=== PATIENT | female | born 2000 | race Two or more races ===

== ENCOUNTER 2020-03-25 10:34 | Inpatient (IN) | payer MEDICAID, OTHER ==
[~2020-03-25] VITALS: Ht 160 cm; Wt 63.7 kg
[2020-03-25] MEDS ORDERED: SODIUM CHLORIDE 0.9% 500 ML IVB ONE (10:51)
[2020-03-25] MEDS ORDERED: SODIUM CHLORIDE 0.9% 1,000 ML IV ONE (10:51)
[2020-03-25] MEDS ORDERED: PROMETHAZINE HCL 25 MG/ML 1ML IV PRN (11:00)
[2020-03-25] MEDS ORDERED: KETOROLAC TROMETH 30 MG/ML 1ML VIAL IV ONE (11:00)
[2020-03-25 11:12] LABS: Basophils # (auto) 0 10 ^3/uL (0-0.2); Basophils % (auto) 0.2 % (0.0-2.0); Eosinophils # (auto) 0 10 ^3/uL (0-0.8); Eosinophils % (auto) 0.3 % (0.0-7.0); Hematocrit 41.2 % (36.0-46.0); Hemoglobin 13.3 g/dL (12.2-16.2); Lymphocytes # (auto) 1.1 10 ^3/uL (0.4-5.4); Lymphocytes % (auto) 9.2 % (10.0-50.0); Mean Corpuscular Hgb Conc. 32.3 g/dL (32.0-36.0); Mean Corpuscular Volume 93.1 fL (80.0-100.0); Monocytes # (auto) 0.5 10 ^3/uL (0-1.3); Monocytes % (auto) 4.4 % (0.0-12.0); Neutrophils # (auto) 10.3 10 ^3/uL (1.6-8.6); Neutrophils % (auto) 85.9 % (37.0-80.0); Platelet Count (auto) 193 10^3/uL (140-450); Red Blood Cells 4.43 10^6/uL (4.0-5.20); Red Cell Distribution Width 13.3 % (11.8-14.3)
[2020-03-25 11:27] LABS: Magnesium 2.1 mg/dL (1.6-2.6)
[2020-03-25 11:29] LABS: Albumin 3.7 g/dL (3.4-5.0); Calcium 8.4 mg/dL (8.5-10.1); Potassium 3.2 mmol/L (3.5-5.1)
[2020-03-25 11:31] LABS: Bilirubin, Total 0.6 mg/dL (0.2-1.0); Total Protein 6.9 g/dL (6.4-8.2)
[2020-03-25 11:49] LABS: Urine Bacteria NONE SEEN /hpf (None Seen); Urine Blood 3+ /uL (Negative); Urine Mucus FEW (None Seen); Urine Specific Gravity 1.023 (1.001-1.035); Urine WBC 15 /hpf (0 - 5)
[2020-03-25] MEDS ORDERED: cefTRIAXone 1GM/50ML D5W 50 ML IV ONE (12:45)
[2020-03-25] MEDS ORDERED: POTASSIUM CHL 20MEQ/100ML 100 ML IV ONE (12:45)
[2020-03-25] MEDS: POVIDONE IODINE 10 % TOPICAL OINT 30GM TOP ONE ×2 (12:57→14:11)
[2020-03-25] MEDS ORDERED: MORPHINE SULF INJ 2 MG/ML SYRINGE 1ML IV PRN (13:00)
[2020-03-25] MEDS ORDERED: ACETAMINOPHEN 500 MG TAB PO PRN (13:00)
[2020-03-25] MEDS ORDERED: ONDANSETRON HCL 4 MG/2 ML VIAL IV PRN ×3 (13:00→14:45)
[2020-03-25] MEDS ORDERED: NITROGLYCERIN 0.4 MG SL TAB SL PRN (13:00)
[2020-03-25] MEDS ORDERED: HYDROcodone-ACET 5/325MG TAB PO PRN (13:00)
[2020-03-25] MEDS ORDERED: ROCURONIUM 10MG/ML 10ML VIAL IV ONE (13:25)
[2020-03-25] MEDS ORDERED: SUCCINYLCHOLINE CHLORIDE 20 MG/ML 10ML VIAL IV ONE (13:29)
[2020-03-25] MEDS ORDERED: LIDOCAINE 1% (LOCAL ANESTH.) PF 5ml SDV ONE (13:29)
[2020-03-25 13:51] LABS: INR 1.07 (0.9-1.15); Partial Thromboplastin Time 28.1 sec (23.64-32.05)
[2020-03-25] MEDS ORDERED: metroNIDAZOLE 500MG/100ML 100 ML IV SCH (14:00)
[2020-03-25] MEDS ORDERED: HYDROmorphone HCL 2 MG/ML VL IV ONE (14:15)
[2020-03-25] MEDS: metroNIDAZOLE 500MG/100ML 100 ML IV SCH ×2 (14:33→22:37)
[2020-03-25] MEDS ORDERED: HYDROmorphone HCL 2 MG/ML VL IV PRN ×2 (14:45)
[2020-03-25] MEDS ORDERED: NALOXONE HCL 0.4 MG/ML VIAL IV PRN (14:45)
[2020-03-25] MEDS: SODIUM CHLORIDE 0.9% 1,000 ML IV SCH ×2 (15:31→23:00)
--- NOTE | 2020-03-25 16:06 | NUR ---
CAME ON BED FROM OR DIRECT ADMIT, ALERT AND ORIENTED X4, NOT IN DISTRESS, CLEAR LS IN BILATERAL LUNG LOBES, RR=16 XTJ=021% IN RA, COUGHING AND DEEP BREATHING ENCOURAGED, DEMONSTRATED AND VERBALIZED WELL, DENIED CHEST PAIN OR SOB, ABDOMEN FLAT AND SOFT WITH HYPOACTIVE BS, SURGICAL INCISIONS X3 DRY AND INTACT COVERED WITH TEGA DERM, TOLERATING ABDOMINAL BINDER WELL, CHE INTACT WARM TO TOUCH, RADIAL AND PEDAL PULSES PALPABLE, PAIN L=4/10 REPORTED, VS T=98.3 RR=16 KCM=790% IN RA, P=90 NP=860/66, RESTING ON BED, HEAD OF BED ELEVATED, BED ON LOW POSITION, CALL LIGHT ON REACH, WILL CONTINUE MONITORING.
[2020-03-25 16:58] VITALS: BP 113/64
--- NOTE | 2020-03-25 18:20 | NUR ---
OUT OF BED TO BR AND BACK TO THE BED, TOLERATED WELL, WILL CONTINUE MONITORING.
--- NOTE | 2020-03-25 19:25 | NUR ---
OPENING NOTE- NOC SHIFT PATIENT IS RESTING IN BED TALKING ON HER PERSONAL CELL PHONE. BED IS LOCKED AT LOWEST POSITION BED RAILS UP X2, BEDSIDE TABLE WITHIN REACH, CALL LIGHT WITHIN REACH. DISCUSSED POC WITH PATIENT AND INSTRUCTED PATIENT TO CALL; PATIENT VERBALIZED UNDERSTANDING.
--- NOTE | 2020-03-25 19:45 | NUR ---
RESTING ON BED, NOT IN DISTRESS, REPORT WAS GIVEN TO THE SHEETMETAL PATTERNMAKER RN.
[2020-03-25] MEDS: MORPHINE SULF INJ 2 MG/ML SYRINGE 1ML IV PRN (20:07)
[2020-03-25 20:25] VITALS: BP 105/54
[2020-03-25 22:00] VITALS: BP 105/54
--- NOTE | 2020-03-25 22:25 | NUR ---
PATIENT UP TO WALK. PATIENT AMBULATES INDEPENDENTLY. STEADY GAIT NOTED. TOLERATES WELL.
[2020-03-26] MEDS: MORPHINE SULF INJ 2 MG/ML SYRINGE 1ML IV PRN (01:14)
[2020-03-26 05:00] VITALS: BP 109/63
[2020-03-26] MEDS: metroNIDAZOLE 500MG/100ML 100 ML IV SCH ×3 (06:27→21:42)
[2020-03-26 08:00] VITALS: BP 102/74
--- NOTE | 2020-03-26 08:00 | NUR ---
Opening Shift Note Assumed care of patient, who is alert and oriented x4. Respirations are even and unlabored. No S/S of distress/SOB or pain. S/p appendectomy. 3 abdominal incisions noted; dressings C/D/I. Abdominal binder is in place. Bed is low, locked with 2x side rails up. Call light is within reach. Instructed on POC and to call for assist PRN, will continue to monitor for changes Q1hr and PRN.
[2020-03-26] MEDS: SODIUM CHLORIDE 0.9% 1,000 ML IV SCH ×2 (09:00→14:17)
[2020-03-26] MEDS: PANTOPRAZOLE 40 MG/10 ML VIAL INJ IV SCH (09:01)
[2020-03-26] MEDS: cefTRIAXone 1GM/50ML D5W 50 ML IV SCH (09:02)
--- NOTE | 2020-03-26 11:35 | NUR ---
Patient ambulating Patient ambulating in hallway with steady gait.
[2020-03-26 12:00] VITALS: BP 105/58
--- NOTE | 2020-03-26 13:35 | NUR ---
Spoke with Dr. Macias Patient reported having a BM today. New orders received to advance diet. (SEE ORDERS). Will continue to monitor. Addendum: 03/26/20 at 1829 by Ivonne Ace RN RN Correction: patient stated that she did not have a BM today but that she has been passing gas. Will relay to oncoming nurse.
[2020-03-26 14:19] LABS: Basophils # (auto) 0 10 ^3/uL (0-0.2); Basophils % (auto) 0.5 % (0.0-2.0); Eosinophils # (auto) 0 10 ^3/uL (0-0.8); Eosinophils % (auto) 0.6 % (0.0-7.0); Hematocrit 37.9 % (36.0-46.0); Hemoglobin 12.2 g/dL (12.2-16.2); Lymphocytes # (auto) 1.3 10 ^3/uL (0.4-5.4); Lymphocytes % (auto) 20.3 % (10.0-50.0); Mean Corpuscular Hemoglobin 30.1 pg (28.0-32.0); Mean Corpuscular Hgb Conc. 32.3 g/dL (32.0-36.0); Mean Corpuscular Volume 93.1 fL (80.0-100.0); Monocytes # (auto) 0.5 10 ^3/uL (0-1.3); Monocytes % (auto) 7.8 % (0.0-12.0); Neutrophils # (auto) 4.4 10 ^3/uL (1.6-8.6); Neutrophils % (auto) 70.8 % (37.0-80.0); Nucleated Red Blood Cells % 0.1 %; Platelet Count (auto) 173 10^3/uL (140-450); Red Blood Cells 4.06 10^6/uL (4.0-5.20); Red Cell Distribution Width 13.2 % (11.8-14.3); White Blood Cell 6.2 10^3/uL (4.4-10.8)
[2020-03-26 16:45] VITALS: BP 109/62
--- NOTE | 2020-03-26 18:42 | NUR ---
Dinner No abdominal pain, N/V reported after consumption of dinner. Patient tolerated well. Patient stated that she is passing more gas now since she had dinner. Will continue to monitor.
--- NOTE | 2020-03-26 19:20 | NUR ---
OPENING NOTE- NOC SHIFT PATIENT IS ALERT AND ORIENTED LAYING IN BED WATCHING TELEVISION. BEDSIDE TABLE WITHIN REACH, CALL LIGHT WITHIN REACH, INCENTIVE SPIROMETER WITHIN REACH. DISCUSSED POC WITH PATIENT AND THE IMPORTANCE OF USE OF INCENTIVE SPIROMETER AND PROPER USE; PATIENT DEMONSTRATED CORRECT USE OF INCENTIVE SPIROMETER. WILL CONTINUE TO MONITOR Q1H AND PRN.
--- NOTE | 2020-03-26 19:35 | NUR ---
PATIENT AMBULATING IN HALLWAY INDEPENDENTLY AND TOLERATING WELL. PATIENT DENIES BOWEL MOVEMENT AND DENIES PASSING GAS AFTER SURGERY. PATIENT REPORTS TOLERATING MEALS WELL.
[2020-03-26 20:10] VITALS: BP 104/66
[2020-03-26 21:45] VITALS: BP 109/66
[2020-03-27] MEDS: SODIUM CHLORIDE 0.9% 1,000 ML IV SCH (04:28)
[2020-03-27 05:42] VITALS: BP 106/54
[2020-03-27 05:48] LABS: BUN/Creatinine Ratio 18.6; Calcium 7.9 mg/dL (8.5-10.1); Magnesium 2.2 mg/dL (1.6-2.6); Potassium 3.4 mmol/L (3.5-5.1)
[2020-03-27] MEDS: metroNIDAZOLE 500MG/100ML 100 ML IV SCH ×2 (05:53→13:34)
--- NOTE | 2020-03-27 07:02 | NUR ---
CLOSING NOTE- NOC SHIFT PATIENT IS SITTING UP IN BED. PATIENT REPORTS PASSING GAS BUT NO BOWEL MOVEMENT AFTER SURGERY. PATIENT STATES THAT SHE NORMALLY DOES NOT HAVE A BOWEL MOVEMENT EVERY DAY. PATIENT TOLERATES INDEPENDENT AMBULATION WELL. STEADY GAIT NOTED. NO S/SX OF DISTRESS, SOB OR PAIN. WILL ENDORSE PATIENT CARE TO DAY SHIFT RN.
--- NOTE | 2020-03-27 07:30 | NUR ---
Opening Shift Note Assumed care of patient, who is alert and oriented x4. Respirations are even and unlabored. No S/S of distress/SOB or pain. S/p appendectomy. 3 abdominal incisions noted; dressings C/D/I. Abdominal binder is in place. Patient ambulates independently with steady gait. Bed is low, locked with 2x side rails up. Call light is within reach. Instructed on POC and to call for assist PRN, will continue to monitor for changes Q1hr and PRN.
[2020-03-27 08:00] VITALS: BP 101/55
[2020-03-27] MEDS: cefTRIAXone 1GM/50ML D5W 50 ML IV SCH (08:36)
[2020-03-27] MEDS: PANTOPRAZOLE 40 MG/10 ML VIAL INJ IV SCH (08:36)
[2020-03-27 12:00] VITALS: BP 110/62
[2020-03-27] MEDS ORDERED: LEVO500T21 PO (14:00)
[2020-03-27] MEDS ORDERED: POTASSIUM CHL 20 Meq TABLET PO ONE (14:00)
[2020-03-27] MEDS ORDERED: DOCU-94 PO (14:00)
[2020-03-27] MEDS ORDERED: METR500T PO (14:00)
[2020-03-27 14:56] VITALS: BP 110/62
--- NOTE | 2020-03-27 16:03 | NUR ---
Discharge instructions given as ordered. Encourage to follow up with PMD as instructed. Emphasized the importance of calling Dr. Hernandez's office to schedule a 1 week follow up appointment. Patient verbalized understanding. All questions and concerns addressed. Patient verbalized understanding. IV removed with catheter intact, pressure dressing applied. Patient taken to vehicle via wheelchair with all personal belongings, accompanied by staff. No distress noted at time of departure.
== END 2020-03-27 16:00 | disposition home or self-care (01) | DRG 233 ==
LOC: ER 10:34 → OVERFLOW 10:35 → WEST WING 15:57
PROVIDERS: ADMIT Nurse Practitioner Acute Care; ATTEND Internal Medicine
PROC: 0DTJ4ZZ Resection of Appendix, Percutaneous Endoscopic Approach (ICD-10-PCS; principal; 2020-03-25 13:30)
DX: K35.30 Acute appendicitis with localized peritonitis, without perforation or gangrene (principal); R65.10 Systemic inflammatory response syndrome (SIRS) of non-infectious origin without acute organ dysfunction; E87.6 Hypokalemia; D72.829 Elevated white blood cell count, unspecified; N39.0 Urinary tract infection, site not specified
CPT/HCPCS: 36415; 74176; 80048; 80053; 81001; 81025; 83690; 83735; 85025; 85610; 85730; 86850; 86900; 86901; 88302; 96361; 96374; 96375; C9113; G0378; J0330; J0696; J1885; J3490

== ENCOUNTER 2020-04-05 12:37 | Emergency (ER) | payer OTHER ==
[~2020-04-05] VITALS: Ht 160 cm; Wt 56.2 kg
[~2020-04-05 12:37] MED LIST: DOCU-94 PO; LEVO500T21 PO; METR500T PO
[2020-04-05 13:19] VITALS: BP 102/60
== END 2020-04-05 15:42 | disposition left against medical advice (07) ==
LOC: ER 12:37
DX: Z48.00 Encounter for change or removal of nonsurgical wound dressing (principal); Z53.21 Procedure and treatment not carried out due to patient leaving prior to being seen by health care provider

== ENCOUNTER 2021-04-03 11:50 | Emergency (ER) | payer OTHER ==
[~2021-04-03] VITALS: Ht 157.5 cm; Wt 55.8 kg
[~2021-04-03 11:50] MED LIST changes: -LEVO500T21 PO; +LEVO500T31 PO
[2021-04-03 12:09] LABS: Urine WBC None Seen /hpf (0 - 5)
[2021-04-03 12:20] LABS: Urine Amorphous Crystal MANY /hpf (None Seen); Urine Bacteria NONE SEEN /hpf (None Seen); Urine Blood Negative /uL (Negative); Urine Mucus FEW (None Seen); Urine Specific Gravity 1.023 (1.001-1.035)
[2021-04-03 13:07] LABS: Basophils # (auto) 0 10 ^3/uL (0-0.2); Basophils % (auto) 0.3 % (0.0-2.0); Eosinophils # (auto) 0 10 ^3/uL (0-0.8); Eosinophils % (auto) 0.3 % (0.0-7.0); Hematocrit 37.3 % (36.0-46.0); Hemoglobin 12.7 g/dL (12.2-16.2); Lymphocytes # (auto) 1.4 10 ^3/uL (0.4-5.4); Lymphocytes % (auto) 17.3 % (10.0-50.0); Mean Corpuscular Hemoglobin 31.5 pg (28.0-32.0); Mean Corpuscular Hgb Conc. 34.1 g/dL (32.0-36.0); Mean Corpuscular Volume 92.5 fL (80.0-100.0); Monocytes # (auto) 0.3 10 ^3/uL (0-1.3); Monocytes % (auto) 3.8 % (0.0-12.0); Neutrophils # (auto) 6.5 10 ^3/uL (1.6-8.6); Neutrophils % (auto) 78.3 % (37.0-80.0); Nucleated Red Blood Cells % 0.1 %; Platelet Count (auto) 218 10^3/uL (140-450); Red Blood Cells 4.03 10^6/uL (4.0-5.20); Red Cell Distribution Width 12.8 % (11.8-14.3); White Blood Cell 8.3 10^3/uL (4.4-10.8)
[2021-04-03 13:24] LABS: Albumin 3.4 g/dL (3.4-5.0); Calcium 8.7 mg/dL (8.5-10.1)
[2021-04-03 13:27] LABS: BUN/Creatinine Ratio 36.7; Bilirubin, Total 0.4 mg/dL (0.2-1.0); Total Protein 6.8 g/dL (6.4-8.2)
[2021-04-03 14:20] VITALS: BP 100/71
== END 2021-04-03 15:33 | disposition home or self-care (01) ==
LOC: ER 11:50
DX: O30.001 Twin pregnancy, unspecified number of placenta and unspecified number of amniotic sacs, first trimester (principal); Z3A.10 10 weeks gestation of pregnancy
CPT/HCPCS: 36415; 76801; 80053; 81001; 81025; 84702; 85025

== ENCOUNTER 2023-04-15 14:36 | Emergency (ER) | payer MEDICAID, OTHER ==
[~2023-04-15] VITALS: Ht 160 cm; Wt 62.2 kg
[2023-04-15 16:51] VITALS: BP 100/66
[2023-04-15] MEDS ORDERED: IBUP800T27 PO (17:01)
[2023-04-15] MEDS ORDERED: METH500T22 PO (17:01)
== END 2023-04-15 17:04 | disposition home or self-care (01) ==
LOC: ER 14:36
DX: S29.012A Strain of muscle and tendon of back wall of thorax, initial encounter (principal); M54.59 Other low back pain; X50.1XXA Overexertion from prolonged static or awkward postures, initial encounter; Y93.89 Activity, other specified; Y92.89 Other specified places as the place of occurrence of the external cause; Y99.8 Other external cause status